=== PATIENT | female | born 1995 | race Caucasian/White ===

== ENCOUNTER 2020-06-27 17:46 | Emergency (ER) | payer OTHER ==
[~2020-06-27] VITALS: Ht 154.9 cm; Wt 61.2 kg
[2020-06-27 18:25] LABS: ABSOLUTE EOSINOPHILS 0.2 thou/uL (0.0-0.7); ABSOLUTE LYMPHOCYTES 1.7 thou/uL (0.8-5.3); ABSOLUTE MONOCYTES 0.5 thou/uL (0.0-1.2); BASOPHILS 0.5 %; HEMATOCRIT 36.2 % (37.0-47.0); HEMOGLOBIN 12.7 gm/dL (12.0-15.0); MCH 30.3 pg (26.0-34.0); MCV 86.5 fL (80.0-100.0); MONOCYTES 5.2 %; MPV 8.5 fl. (7.2-11.1); NUCLEATED RBCS 0 /100WBC; PLATELET COUNT* 238 thou/uL (150-400); POLYS 74.3 %; RBC 4.18 mil/uL (4.20-5.00); RDW-CV 12.6 % (10.5-14.5); WBC 9.4 thou/uL (4.0-11.0)
[2020-06-27 18:32] LABS: URINE BILIRUBIN NEGATIVE (Negative); URINE BLOOD NEGATIVE (Negative); URINE CLARITY CLEAR; URINE COLOR YELLOW; URINE GLUCOSE-RANDOM NEGATIVE (Negative); URINE KETONES NEGATIVE (Negative); URINE LEUKOCYTES-REFLEX NEGATIVE (Negative); URINE NITRITE-REFLEX NEGATIVE (Negative); URINE PROTEIN NEGATIVE (Negative); URINE UROBILINOGEN 0.2 E.U./dl (0.2-1.0)
[2020-06-27 18:36] LABS: CALCIUM 8.9 mg/dL (8.5-10.1); CREATININE 0.8 mg/dL (0.6-1.3); POTASSIUM 3.6 mmol/L (3.5-5.1)
[2020-06-27 18:40] LABS: ALBUMIN 4.5 g/dL (3.4-5.0); TOTAL BILIRUBIN 0.2 mg/dL (<0.1-1.0); TOTAL PROTEIN 7.9 g/dL (6.4-8.2)
[2020-06-27 19:56] VITALS: BP 120/84
== END 2020-06-27 19:57 | disposition home or self-care (01) ==
LOC: M.ERS 17:46
PROVIDERS: Physician Assistant
DX: R10.32 Left lower quadrant pain (principal); R10.84 Generalized abdominal pain; R10.31 Right lower quadrant pain; Z88.1 Allergy status to other antibiotic agents; Z98.890 Other specified postprocedural states

== ENCOUNTER 2021-03-12 20:28 | Emergency (ER) | payer OTHER ==
[~2021-03-12] VITALS: Ht 154.9 cm; Wt 61.2 kg
[2021-03-12] MEDS ORDERED: ADDERALL 10 MG10 MG PO ×2 (20:51)
[2021-03-12] MEDS ORDERED: IBUPROFEN 800800 M1 PO (21:55)
[2021-03-12 22:02] VITALS: BP 142/76
== END 2021-03-12 22:03 | disposition home or self-care (01) ==
LOC: M.ERS 20:28
DX: S93.402A Sprain of unspecified ligament of left ankle, initial encounter (principal); F12.90 Cannabis use, unspecified, uncomplicated; Z88.1 Allergy status to other antibiotic agents; Z98.890 Other specified postprocedural states; X50.1XXA Overexertion from prolonged static or awkward postures, initial encounter; Y93.02 Activity, running; Y92.89 Other specified places as the place of occurrence of the external cause; Y99.9 Unspecified external cause status